=== PATIENT | male | born 1985 | race Caucasian/White ===

== ENCOUNTER 2025-03-06 12:43 | Emergency (ER) | payer OTHER, SELFPAY ==
[2025-03-06 12:46] VITALS: BP 161/103
--- NOTE | 2025-03-06 13:27 | ED.GENMED ---
History of Present Illness
General
Chief Complaint: Male Genito-Urinary Symptoms
Source: patient
Exam Limitations: none
Time Seen by Provider: 03/06/25 13:26
Nursing documentation reviewed up to this point in time: agreed with
History of Present Illness
History of Present Illness:
Patient to ED with pain to lower pelvis radiating to scrotum. Symptoms started on Friday and continue to worsen. Did not take temp but reports shaking chills at home. Went to but was referred to ED. No prior history of same. Denies n/v/d.
Past History
Past History
ED Past Medical History: None
ED Past Surgical History: Orthopedic
Review of Systems
Review of Systems
Allergies reviewed?: Yes
All Other Systems: ROS reviewed and negative except as documented in HPI and ROS
Constitutional: Reports chills and other (generalized body aches)
EENT: Reports no symptoms
Respiratory: Reports no symptoms
Cardiac: Reports no symptoms
ABD/GI: Reports no symptoms
: Reports other (bilateral lower pelvic pain radiating to scrotum)
Musculoskeletal: Reports other (generalized body aches)
Skin: Reports no symptoms
Neurological: Reports no symptoms
Psychiatric: Reports no symptoms
Phy Exam
General Physical Exam
General Presentation: mild distress
General age: appears stated age
General Skin: warm and dry
General Habitus: normal
Gastrointestinal Exam
Gastrointestinal Exam: normal bowel sounds, non tender, soft, no organomegaly, non distended and no cva tenderness
Genitourinary Exam Male
Exam Male: circumcised, no discharge, normal external genitalia, normal testicular exam, no evidence of trauma, no lesions and other (Bilateral enlarged firm inguinal lymph nodes.)
Musculoskeletal Exam
Musculoskeletal Exam: full ROM and neuro vasc intact
Skin Exam
Skin Exam: normal color, warm/dry and no rash
Psychiatric Exam
Psychiatric Exam: normal mood/affect
Course
Orders/Labs/Results
Orders:
Orders
03/06/25 13:44
Scrotum US [US Scrotum] Urgent
Comment:
Reason For Exam: bilateral pain
03/06/25 13:53
COVID-19 Antigen Urgent
Source: Nasal Swab
Complete Blood Count/With Diff Urgent
Comprehensive Metabolic Panel Urgent
Urinalysis Reflex To Culture Urgent
Date Specimen was Collected: 03/06/25
Time Specimen was Collected: 13:52
Urine Microscopic Reflex Cult Urgent
Influenza A+B Rapid Molecular Urgent
JULIETTE Source: Nasal Swab
Specimen Description:
03/06/25 15:48
CefTRIAXone [Rocephin] 500 mg IM NOW STA
Doxycycline [Vibramycin] 100 mg PO NOW STA
03/06/25 16:01
Sterile Water [Sterile Water For Injection] 10 ml .ROUTE .[facility]
Abnormal Lab Results
03/06/25
13:53
Absolute Lymphs (auto) 0.8 L 10^3/uL
(1.2-3.4)
Neutrophils % 77.7 H %
(42.2-75.2)
Lymphocytes % 11.8 L %
(20.5-51.1)
Ur Occult Blood Reflex 1+ A
(Negative)
03/06/25 13:53
03/06/25 13:53
Vital Signs
Initial and Last Documented VS:
Initial Vital Signs
Temp Pulse Resp BP Pulse Ox
99.9 F 102 16 161/103 99
03/06/25 12:46 03/06/25 12:46 03/06/25 12:46 03/06/25 12:46 03/06/25 12:46
Last Documented Vital Signs
Temp Pulse Resp BP Pulse Ox
99.9 F 72 16 153/91 98
03/06/25 12:46 03/06/25 16:11 03/06/25 16:11 03/06/25 16:11 03/06/25 16:11
*Radiology
Radiology exam reviewed: radiology read reviewed
*Pulse Oximetry
SaO2: 99
Oxygen Mode of Delivery: Room air
Patient hypoxic: no
*Critical Care Note
Total Time (30-74mins, 75-104mins- exclusive of procedures): Not Applicable
Update Note
Update Note:
Patien to ED with omplaint of lower pelvic pain radiating to scrotum. SYmptoms started on . US reviewed, confirms bilateral epididymo-orchitis. Discussed results with patient. VSS, he remains afebrile. Labs reveiwed, UA neg for
infection. He denies any urinary symtpoms. Monogamous relationship, spouse without symptoms. Antibiotics started in dept. He is discharged home and will follow up with urology. Given instructions on s/s to return to ED and he is agreeable to plan.
ED Attending Note
-
Portions of this chart may have been created with voice recognition software.� Occasional wrong word or��sound alike� substitutions may have occurred due to the inherent limitations of voice recognition software.
Discharge Plan
Departure
Patient Disposition: Home (Routine Discharge)
Date of Disposition: 03/06/25
Time of Disposition: 15:50
Patient with high blood pressure during this ER visit?: No
Condition: Good
Covid-19: Not Applicable
Discharge Problem:
Epididymo-orchitis, acute
Instructions: Epididymitis and Orchitis
Prescriptions:
New
doxycycline hyclate 100 mg capsule
100 mg PO BID Qty: 20 0RF
Referrals:
Sera Kim PA-C [Family Provider, Internal Medicine]
Fernando Cottrell MD [Active, Urology] - Call in 1-3 days for appt
Interventions
Interventions:
*Risk Screen - Suicide Last Done: 03/06/25 14:08
*General Assessment Last Done: 03/06/25 14:08
*Neglect/Abuse Screening Last Done: 03/06/25 14:08
*ED- Fall Risk Assessment Last Done: 03/06/25 14:08
*ED COVID-19 Vaccine History Last Done: 03/06/25 14:08
*Nursing Disposition Last Done: 03/06/25 16:14
ED-Male Genitourinary Assessment Last Done: 03/06/25 14:00
Discharge Date and Time
Discharge Date/Time: 03/06/25 16:22
Print Language: OCCITAN
[2025-03-06 14:08] VITALS: BP 133/87; BMI 23.4
[2025-03-06 14:16] LABS: % Basophils 0.6 % (0-2); % Eosinophils 0.3 % (0-6); % Immature Granulocytes 0.3 % (0-0.5); % Lymphocytes 11.8 % (20.5-51.1); % Monocytes 9.3 % (1.7-9.3); % Neutrophils 77.7 % (42.2-75.2); Absolute Lymphocytes 0.8 10^3/uL (1.2-3.4); Absolute Monocytes 0.6 10^3/uL (0.1-0.6); Hematocrit 46.8 % (39.0-52.0); Hemoglobin 16.2 g/dL (13.0-18.0); Mean Corp Hgb Conc. 34.6 g/dL (33.0-37.0); Mean Corpuscular Hgb 30.2 pg (27.0-31.0); Mean Corpuscular Volume 87.3 fL (80.0-94.0); Nucleated Red Blood Cells % 0 % (-); Platelet Count 211 10^3/uL (130-400); Red Blood Cell Count 5.36 10^6/uL (4.70-6.10); Red Cell Dist. Width 11.7 % (11.5-14.5); White Blood Cell Count 6.4 10^3/uL (4.8-10.8)
[2025-03-06 14:19] LABS: Urine Albumin Negative (Neg - Trace); Urine Bilirubin Negative (Negative); Urine Character Clear (Clear); Urine Color Yellow; Urine Glucose Negative (Negative); Urine Ketone Negative (Negative); Urine Leukocyte Negative (Negative); Urine Nitrite Negative (Negative); Urine Occult Blood 1+ (Negative); Urine Specific Gravity 1.005 (<1.030); Urine Urobilinogen Negative (Neg - 1+)
[2025-03-06 14:28] LABS: Urine Squamous Cell 0-2 /LPF (Few)
[2025-03-06 14:29] LABS: Urine Red Blood Cell 0-2 /HPF (0-2); Urine White Cell None Seen /HPF (0-5)
[2025-03-06 14:36] LABS: ALT (SGPT) 27 U/L (0-50); AST (SGOT) 24 U/L (17-59); Albumin 4.4 g/dl (3.5-5.0); Alkaline Phosphatase 84 U/L (38-126); Blood Urea Nitrogen 12 mg/dl (9-20); Calcium 9.1 mg/dl (8.4-10.2); Carbon Dioxide 28 mmol/L (22-30); Chloride 104 mmol/L (98-107); Estimated Creatinine Clearance 125 ml/min; Glucose 92 mg/dl (70-99); Potassium 4.1 mmol/L (3.5-5.1); Sodium 138 mmol/L (135-145); Total Bilirubin 1.1 mg/dl (0.2-1.3); Total Protein 7.2 g/dl (6.3-8.2); eGFR > 60.00
[2025-03-06 14:39] LABS: COVID-19 Antigen Negative (Negative)
[2025-03-06] MEDS: VIBRAMYCIN 100 MG PO (16:06)
[2025-03-06] MEDS: ROCEPHIN 500 MG IM (16:07)
[2025-03-06 16:11] VITALS: BP 153/91
== END 2025-03-06 16:22 | disposition home or self-care (01) ==
LOC: EMR 12:43
PROVIDERS: Nurse Practitioner; EMERGENCY PHYSICIAN Emergency Medicine; FAMILY PHYSICIAN Physician Assistant
DX: N45.3 Epididymo-orchitis (principal); R10.2 Pelvic and perineal pain; Z11.52 Encounter for screening for COVID-19; Z91.013 Allergy to seafood
CPT/HCPCS: 99284; 96372; 76870; 80053; 81003; 81015; 85025; 87502; 87811; 93976